=== PATIENT | female | born 1935 ===

== ENCOUNTER 2019-06-19 13:51 | Emergency (ER) | payer MEDICARE ==
[~2019-06-19] VITALS: Ht 152.4 cm; Wt 55.9 kg
--- NOTE | 2019-06-19 14:29 | ED Upper Extremity ---
General Chief Complaint: Upper Extremity Stated Complaint: R SHOULDER PAIN Nursing Triage Note: AMB TO TRIAGE REPORTS JUN 10 SLIPPED AND FELL ON R SHOULDR. PAIN SINCE . Nursing Sepsis Screen: No Definite Risk Source: patient Exam Limitations: no limitations History of Present Illness Date Seen by Provider: Jun 19, 2019 Time Seen by Provider: 14:15 Initial Comments This is an 83-year-old female that presents to the emergency departments with complaints of right shoulder pain. Patient reports on 10 June she slipped and fell landing on her left elbow. Patient reports that the left arm is fine and that she did not hit her head at this time, patient denies hitting her right arm during the fall but reports that the shoulder is hurting patient does have full range of motion with bilateral elbows and has no complaints regarding them. Onset: last week Pain/Injury Location: right shoulder Method of Injury: fell Modifying Factors: Improves With Immobilization; Worse With Movement; Improves With Rest Allergies and Home Medications Allergies Coded Allergies: No Known Drug Allergies (Unverified , 06/19/19) Home Medications No Active Prescriptions or Reported Meds Patient Home Medication List Home Medication List Reviewed: Yes Review of Systems Constitutional: no symptoms reported, see HPI EENTM: see HPI, no symptoms reported Respiratory: no symptoms reported, see HPI Cardiovascular: no symptoms reported, see HPI Gastrointestinal: no symptoms reported, see HPI Genitourinary: no symptoms reported, see HPI Musculoskeletal: see HPI, muscle pain Skin: no symptoms reported, see HPI Psychiatric/Neurological: No Symptoms Reported, See HPI All Other Systems Reviewed Negative Unless Noted: Yes Past Hqmpaeg-Iieoqe-Mwgblg Hx Past Med/Social Hx: Reviewed Nursing Past Med/Soc Hx Patient Social History Alcohol Use: Denies Use Recreational Drug Use: No Smoking Status: Never a Smoker Recent Foreign Travel: No Contact w/Someone Who Travel: No Recent Infectious Disease Expo: No Past Medical History Surgeries: No Respiratory: No Cardiac: No Neurological: No Genitourinary: No Gastrointestinal: No Musculoskeletal: No Endocrine: No Integumentary: No Physical Exam Vital Signs Vital Signs - First Documented 06/19/19 14:05 Temp 36.8 Pulse 71 Resp 18 B/P (MAP) 180/77 (111) Pulse Ox 98 O2 Delivery Room Air Capillary Refill : Less Than 3 Seconds Height, Weight, BMI Height: '" Weight: lbs. oz. kg; 24.00 BMI Method: General Appearance: WD/WN, no apparent distress HEENT: PERRL/EOMI, normal ENT inspection, TMs normal, pharynx normal Neck: non-tender, full range of motion, supple, normal inspection Cardiovascular: normal peripheral pulses, regular rate, rhythm, no edema, no gallop, no JVD, no murmur Respiratory: chest non-tender, lungs clear, normal breath sounds, no respiratory distress, no accessory muscle use Gastrointestinal: normal bowel sounds, non tender, soft, no organomegaly, no pulsatile mass Back: normal inspection, no CVA tenderness, no vertebral tenderness Shoulder: non-tender, no evidence of injury, limited ROM (right shoulder) Elbow/Forearm: normal inspection, non-tender, no evidence of injury, normal ROM Wrist: Yes normal inspection, Yes non-tender, Yes no evidence of injury, Yes normal ROM Hand: normal inspection, non-tender, no evidence of injury, normal ROM Neurologic/Psychiatric: no motor/sensory deficits, alert, normal mood/affect, oriented x 3 Progress/Results/Core Measures Results/Orders My Orders Orders - TAMICA HAWKINS Shoulder, Right, 3 Views (06/19/19 14:23) Vital Signs/I&O 06/19/19 06/19/19 14:05 15:11 Temp 36.8 36.8 Pulse 71 71 Resp 18 18 B/P (MAP) 180/77 (111) 180/77 (111) Pulse Ox 98 98 O2 Delivery Room Air Blood Pressure Mean: 111 POS Diagnostic Imaging Diagonstic Imaging: Xray Plain Films/CT/US/NM/MRI: other (shoulder) Comments NAME: SIENA GIMENEZ [facility] REC#: [id number] PT STATUS: DEP ER : 1935 PHYSICIAN: TAMICA HAWKINS ADMIT DATE: 06/19/19/ER Signed POSDate of Exam:06/19/19 SHOULDER, RIGHT, 3 VIEWS INDICATION: Right shoulder pain, fall one week ago. Time of Exam: 2:34 PM 3 views right shoulder were obtained. There are significant glenohumeral joint degenerative changes. There is joint space narrowing with marginal osteophyte formation at the humeral head/neck junction. There is some narrowing of the acromiohumeral space, likely owing to chronic rotator cuff arthropathy. No fracture is identified. There is no dislocation. IMPRESSION: Degenerative changes and probable changes of chronic rotator cuff arthropathy. No acute bony abnormality is detected. Dictated by: Dictated on workstation # [id number] Dict: 06/19/19 1437 Trans: 06/19/19 1548 [facility] [id number] Interpreted by: TORIBIO HERNANDEZ MD Electronically signed by: TORIBIO HERNANDEZ MD 06/19/19 1548 Reviewed: Reviewed by Me Departure Impression Primary Impression: Strain of tendon of right rotator cuff Qualified Codes: S46.011A - Strain of muscle(s) and tendon(s) of the rotator cuff of right shoulder, initial encounter Disposition: HOME, SELF-CARE Condition: Stable Departure-Patient Inst. Decision time for Depature: 15:00 Referrals: YANCY FLORENCE MD Patient Instructions: Active Range of Motion Exercises, Neck and Shoulders, How to Use a Shoulder Sling, Rotator Cuff Injury (DC) Add. Discharge Instructions: Contact Dr. Florence's office tomorrow afternoon if you do not hear from them. You may take Tylenol 650 mg and alternate it with ibuprofen 600 mg every 4 hours. Use the sling during the day while your up and moving. Return to the emergency department for any new emergent concerns. All discharge instructions reviewed with patient and/or family. Voiced understanding. Scripts No Active Prescriptions or Reported Meds Copy Copies To 1: YANCY FLORENCE MD, AMY ARNP Jun 19, 2019 14:29 POS
--- NOTE | 2019-06-19 14:53 | Diagnostic Imaging Report ---
INDICATION: Right shoulder pain, fall one week ago. Time of Exam: 2:34 PM 3 views right shoulder were obtained. There are significant glenohumeral joint degenerative changes. There is joint space narrowing with marginal osteophyte formation at the humeral head/neck junction. There is some narrowing of the acromiohumeral space, likely owing to chronic rotator cuff arthropathy. No fracture is identified. There is no dislocation. IMPRESSION: Degenerative changes and probable changes of chronic rotator cuff arthropathy. No acute bony abnormality is detected. Dictated by: Dictated on workstation # [id number]
[2019-06-19 15:11] VITALS: BP 180/77
--- OUTSIDE RECORDS SUMMARY | 2019-07-14 12:12 | XMS REPORT | Continuity of Care Document ---
Author Organization Unknown Address Unknown Phone Unavailable Allergies Active Description Code Type Severity Reaction Onset Reported/Identified Relationship to Patient Clinical Status Yes No Known Drug Allergies [id number] Drug Allergy Unknown N/A 06/19/2019 Medications There is no data. Problems Date Dx Coded Attending Type Code Diagnosis Diagnosed By 06/24/2019 TAMICA HAWKINS Ot M25.511 PAIN IN RIGHT SHOULDER 06/24/2019 TAMICA HAWKINS Ot S46.011A STRAIN OF MUSC/TEND THE ROTATOR CUFF OF 06/24/2019 TAMICA HAWKINS Ot W01.0XXA FALL SAME LEV FROM SLIP/TRIP W/O STRIKE Procedures There is no data. Results There is no data. Encounters ACCT No. Visit Date/Time Discharge Status Pt. Type Provider Facility Loc./Unit Complaint [id number] 06/19/2019 13:52:00 019 15:11:00 DIS Outpatient TAMICA HAWKINS Vi a [facility] ER R SHOULDER PAIN
== END 2019-06-19 15:11 | disposition home or self-care (01) ==
LOC: EDUNIT# 13:51 → ER 13:52
DX: S46.011A Strain of muscle(s) and tendon(s) of the rotator cuff of right shoulder, initial encounter (principal); W01.0XXA Fall on same level from slipping, tripping and stumbling without subsequent striking against object, initial encounter
CPT/HCPCS: 73030